=== PATIENT | male | born 2000 | race Hispanic/Latino ===

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

== ENCOUNTER 2025-08-12 20:06 | Observation (INO) | payer SELFPAY ==
[2025-08-12] MEDS ORDERED: Lidocaine/Transparent Dressing 1 EACH KIT ONE (21:05)
[2025-08-12] MEDS ORDERED: CEFAZOLIN 2 GM VIAL ONE (22:40)
[2025-08-12 23:30] LABS: #Basophils 0.04 10x3/uL (0.0-0.2); #Eosinophils 0.06 10x3/uL (0.0-0.7); #Monocytes 0.48 10x3/uL (0.11-0.59); #Neutrophils 10.99 10x3/uL (1.40-6.50); %Basophils 0.3 % (0.0-1.0); %Eosinophils 0.5 % (0.0-10.0); %Lymphocytes 9.3 % (21.0-51.0); %Monocytes 3.8 % (0.0-10.0); %Neutrophils 85.8 % (42.0-75.0); Hematocrit 39.2 % (42.0-52.0); Hemoglobin 13.6 g/dL (14.0-18.0); Mean Corpuscular Hemoglobin 29.1 pg (27.0-31.0); Mean Corpuscular Volume 83.8 fL (78.0-98.0); Platelet Count 317 10x3/uL (130-400); Red Blood Cell (RBC) Count 4.68 mill/uL (4.70-6.10); White Blood Cell (WBC) Count 12.80 10x3/uL (4.8-10.8)
[2025-08-12] MEDS ORDERED: Ondansetron PF 4 MG/2 ML Vial IVP PRN (23:30)
[2025-08-12 23:44] LABS: ALT (SGPT) 16 U/L (Less than 45); AST (SGOT) 40 U/L (11-34); Albumin 4.1 g/dL (3.1-4.5); Alkaline Phosphatase 82 U/L (40-110); Anion Gap 11 mmol/L (10-20); BUN (Urea Nitrogen) 14 mg/dL (8.9-20.6); Bilirubin, Total 0.2 mg/dL (0.3-1.2); Calc. Creatinine Clearance 0 mL/min (70-130); Calcium 9.2 mg/dL (7.8-10.44); Carbon Dioxide 23 mmol/L (22-29); Chloride 107 mmol/L (98-107); Globulin 3.1 g/dL (2.4-3.5); Glucose 132 mg/dL (70-105); Potassium 4.0 mmol/L (3.5-5.1); Sodium 137 mmol/L (136-145)
[2025-08-13 00:31] VITALS: BMI 38.7
[2025-08-13] MEDS ORDERED: HYDROcodone/Acetaminophen 7.5/325 mg Tablet PO PRN (06:03)
[2025-08-13] MEDS: HYDROcodone/Acetaminophen 7.5/325 mg Tablet PO PRN (06:13)
[2025-08-13] MEDS ORDERED: PROPOFOL 20 ML ONE ×2 (08:49→08:50)
[2025-08-13] MEDS ORDERED: fentaNYL PF 100 MCG/2 ML SYRINGE ONE ×2 (08:49→14:54)
[2025-08-13] MEDS ORDERED: Lidocaine 1% PF 5 ML VIAL ONE (08:51)
[2025-08-13] MEDS ORDERED: Bacitracin Zinc Ointment 30 gm TUBE ONE (09:26)
[2025-08-13] MEDS ORDERED: Ondansetron PF 4 MG/2 ML Vial ONE (12:44)
[2025-08-13] MEDS ORDERED: HYDROmorphone 2 MG/ML VIAL ONE (12:46)
[2025-08-13] MEDS ORDERED: Ketorolac Tromethamine 30 MG (1 mL) VIAL IVP PRN (14:11)
[2025-08-13] MEDS ORDERED: Meperidine HCl/PF 25 MG (1 mL) VIAL IM PRN (14:11)
[2025-08-13] MEDS ORDERED: HYDROmorphone 0.5 MG/0.5 ML SYRINGE ONE (14:57)
[2025-08-13 15:55] VITALS: TEMP 98.2
[2025-08-13 20:18] VITALS: BP 151/89
[2025-08-14] MEDS ORDERED: Vancomycin 1 GM in Premix 1 BAG IVPB SCH (01:00)
== END 2025-08-13 20:37 | disposition home or self-care (01) ==
LOC: ERS 20:06 → SURG B 23:19
PROVIDERS: ADMIT Orthopaedic Surgery Hand Surgery; ATTEND Orthopaedic Surgery Hand Surgery
PROC: 0HBGXZZ Excision of Left Hand Skin, External Approach (ICD-10-PCS; principal; 2025-08-12)
DX: S61.422A Laceration with foreign body of left hand, initial encounter (principal); W45.8XXA Other foreign body or object entering through skin, initial encounter
CPT/HCPCS: 29125; 80053; 85025; 90471; 90715; 96365; 96376; G0378; J0665; J1100; J1171; J2250; J2405; J2704; J3010; J3373; J7030